=== PATIENT | male | born 1965 | race Caucasian/White ===

== ENCOUNTER 2017-11-09 09:56 | Day surgery (SDC) | payer BC, SELFPAY ==
[2017-11-08 14:51] VITALS: BMI 24.3
[2017-11-09] VITALS (7 sets, daily range): BP systolic 105–136; BP diastolic 65–80; PULSE 53–63; RESP 16–20; TEMP 36.4–36.8; O2SAT 54–99
--- NOTE | 2017-11-09 12:00 | HMH.SCOPE ---
- Procedure: Date: 11/09/17 Procedure Performed:: Total colonoscopy to terminal ileum with polypectomy Indications:: Patient is a 52-year-old white male referred by Dr. Vivek Cooper for colonoscopy. I had performed colonoscopy on him 12 years ago in 2005 after he had relatively significant diverticulitis requiring several day inpatient stay. Following that he did have colonoscopy revealing some diverticulosis. He has had no problems since then. Plan was made for colonoscopy for screening. Performing Provider:: Jared Paige MD Referring Provider:: Kenneth Sedation:: Propofol Procedure:: Consent was obtained and patient was taken to endoscopy procedure room. He was positioned in a lateral decubitus position. Adequate intravenous sedation was achieved. Double stiffness Olympus colonoscope was inserted via the anus and advanced to the cecum. Ileocecal valve and appendiceal orifice were clearly identified. Colonoscope was advanced into the terminal ileum which appeared grossly normal. Colonoscope was withdrawn through the colon with careful surveillance. There was a tiny possible early diminutive ridge polyp removed with biopsy forceps. Within the sigmoid colon around 30 cm from anal verge there were several scattered diverticuli. There was a subtle hyperplastic appearing polyp in the sigmoid colon which was removed with cold biopsy forceps but was unable to be retrieved. Colonoscope was withdrawn into the rectum and retroflexion revealed nonpathologic internal hemorrhoids. Colonoscope was withdrawn. Findings:: Diverticulosis Possible early polyp Recommendations:: Likely repeat colonoscopy 5 years Complications:: None Estimated blood obtained (mL): 2
--- NOTE | 2017-11-09 12:48 | HMH.ANESCL ---
[facility] Anesthesia Checklist - Patient Identification Patient Identification: Arm Band - Structural Data Admitted From: Home Planned Operative Procedure/s: colonoscopy Consent for Planned Operative Procedure(s) Verified: Yes Verified Documents: Surgical Consent, History and Physical - NPO Status Verified Time NPO: 00:00 - Additional verifications Anesthesia Reactions: No - Airway Assessment C-Spine Mobility Assessed: Yes (mp2) TMJ Mobility Assessed: Yes Dentition: Good Dentition - Neurological Assessment Level of Consciousness: Awake, Alert - Anesthesia Plan Anesthesia Risk discussed: Yes Anesthesia Plan: Verified ASA Class: II Anesthesia Type: MAC [facility] Anesthesia HX I have reviewed the patient's past medical history: Yes Medical History: Reports:: Hypertension Denies:: Diabetes Mellitus Type 1, Diabetes Mellitus Type 2, Internal Pacemaker, Lung Disease, Seizures Other Surgeries: Yes: No Previous Surgery. No: Pacemaker *Family Hx:: No significant family history
== END 2017-11-09 12:45 | disposition home or self-care (01) ==
LOC: OUTP 10:02
PROVIDERS: Family Provider Internal Medicine; PCP Internal Medicine; Visit Provider Surgery
PROC: 0DJD8ZZ Inspection of Lower Intestinal Tract, Via Natural or Artificial Opening Endoscopic (ICD-10-PCS; CPT 45380; principal; 2017-11-09 11:15)
DX: Z12.11 Encounter for screening for malignant neoplasm of colon (principal); K63.5 Polyp of colon; K57.30 Diverticulosis of large intestine without perforation or abscess without bleeding; K63.89 Other specified diseases of intestine
CPT/HCPCS: 45380

== ENCOUNTER → 2022-03-19 07:48 | Outpatient (CLI) | payer BC, SELFPAY ==
[2022-03-19 08:20] LABS: Basophils # 0.1 K/mm3 (0-0.2); Basophils % 0.8 % (0.1-2.0); Eosinophils # 0.1 K/mm3 (0.0-0.4); Eosinophils % 1.6 % (0.1-12.0); Hematocrit 44.9 % (42.0-52.0); Hemoglobin 14.5 g/dL (14.1-18.0); Lymphocytes # 1.7 K/mm3 (0.7-4.5); Mean Corpuscular HGB Conc 32.2 g/dL (31.8-35.4); Mean Corpuscular Hemoglobin 30.1 pg (27.0-31.2); Mean Corpuscular Volume 93.4 fl (80-94); Mean Platelet Volume 7.5 fl (7.4-10.4); Monocytes # 0.4 K/mm3 (0.1-1.0); Monocytes % 5.4 % (1.7-9.3); Neutrophils # 4.4 K/mm3 (1.8-7.8); Neutrophils % 66.1 % (37.0-80.0); Platelet Count 259 K/mm3 (142-424); Red Blood Count 4.81 M/mm3 (4.60-6.20); Red Cell Distribution Width 13.7 % (11.5-17.5); White Blood Count 6.7 K/mm3 (4.8-10.8)
[2022-03-19 08:54] LABS: Potassium 4.3 mmoL/L (3.5-5.1); Sodium 140 mmol/L (136-145)
[2022-03-19 08:56] LABS: Alanine Aminotransferase 37 U/L (12-78); Aspartate Amino Transferase 39 U/L (17-59); Blood Urea Nitrogen 18 mg/dl (9-20); Estimated Glomerular Filt Rate 87 ml/min (>60); GFR (African American) 106 ML/MIN (>60)
[2022-03-19 08:57] LABS: Albumin Level 4.2 g/dl (3.5-5.0); Albumin/Globulin Ratio 1.6 (1.1-1.8); Alkaline Phosphatase 104 U/L (38-126); Bilirubin,Total 0.2 mg/dl (0.2-1.3); Calcium 9.3 mg/dl (8.4-10.2); Carbon Dioxide 28 mmol/L (22.0-30.0); Cholesterol 211 mg/dl (140-200); Globulin 2.6 g/dL (1.3-3.2); Glucose 129 mg/dl (74-100); HDL Cholesterol 71 mg/dl (40-60); Total Protein,Serum 6.8 g/dl (6.3-8.2); Triglycerides 193 mg/dl (30-150); VLDL Cholesterol 39 mg/dL (0-40)
[2022-03-19 09:01] LABS: Uric Acid 4.3 mg/dl (3.5-8.5)
[2022-03-19 09:32] LABS: Prostate Specific Ag, Diagnost 0.848 ng/ml (0.0-4.0)
[2022-03-19 10:20] LABS: Anion Gap 8.3 mEq/L (5-15); Chloride 108 mmol/L (98-107)
[2022-03-20 08:29] LABS: Direct LDL Cholesterol 115 mg/dL (100-129)
== END ==
PROVIDERS: PCP Internal Medicine; Visit Provider Internal Medicine
DX: I10 Essential (primary) hypertension (principal); E78.5 Hyperlipidemia, unspecified; K57.30 Diverticulosis of large intestine without perforation or abscess without bleeding; M10.9 Gout, unspecified
CPT/HCPCS: 36415; 80053; 80061; 84153; 84550; 85025

== ENCOUNTER → 2022-12-07 09:45 | Outpatient (CLI) | payer BC, SELFPAY ==
[2022-12-07 11:09] LABS: Chloride 105 mmol/L (98-107); Potassium 4.7 mmoL/L (3.5-5.1); Sodium 139 mmol/L (136-145)
[2022-12-07 11:11] LABS: Blood Urea Nitrogen 14 mg/dl (9-20); Estimated Glomerular Filt Rate 87 ml/min (>60); GFR (African American) 105 ML/MIN (>60)
[2022-12-07 11:12] LABS: Alanine Aminotransferase 42 U/L (12-78); Albumin Level 4.4 g/dl (3.5-5.0); Albumin/Globulin Ratio 1.6 (1.1-1.8); Alkaline Phosphatase 82 U/L (38-126); Anion Gap 11.7 mEq/L (5-15); Aspartate Amino Transferase 42 U/L (17-59); Bilirubin,Total 0.5 mg/dl (0.2-1.3); Calcium 8.7 mg/dl (8.4-10.2); Carbon Dioxide 27 mmol/L (22.0-30.0); Cholesterol 211 mg/dl (140-200); Globulin 2.7 g/dL (1.3-3.2); Glucose 92 mg/dl (74-100); Total Protein,Serum 7.1 g/dl (6.3-8.2); Triglycerides 253 mg/dl (30-150); VLDL Cholesterol 51 mg/dL (0-40)
[2022-12-07 11:13] LABS: Chol/HDL Ratio 3.4 (1-3.5); HDL Cholesterol 62 mg/dl (40-60)
[2022-12-07 11:23] LABS: Direct LDL Cholesterol 92.18 mg/dL (100-129)
[2022-12-07 15:02] LABS: Uric Acid 4.3 mg/dl (3.5-8.5)
== END ==
PROVIDERS: PCP Internal Medicine; Visit Provider Internal Medicine
DX: I10 Essential (primary) hypertension (principal); E78.5 Hyperlipidemia, unspecified; K57.30 Diverticulosis of large intestine without perforation or abscess without bleeding; R73.02 Impaired glucose tolerance (oral); M10.9 Gout, unspecified
CPT/HCPCS: 36415; 80053; 80061; 84550

== ENCOUNTER → 2023-06-18 09:29 | Outpatient (CLI) | payer BC, SELFPAY ==
[2023-06-18 10:44] LABS: Basophils % 0.8 % (0.1-2.0); Eosinophils # 0.1 K/mm3 (0.0-0.4); Eosinophils % 2.3 % (0.1-12.0); Hemoglobin 15.2 g/dL (14.1-18.0); Lymphocytes # 1.4 K/mm3 (0.7-4.5); Lymphocytes % 27.3 % (10-50); Mean Corpuscular HGB Conc 34.6 g/dL (31.8-35.4); Mean Corpuscular Hemoglobin 31.8 pg (27.0-31.2); Mean Corpuscular Volume 91.8 fl (80-94); Mean Platelet Volume 7.2 fl (7.4-10.4); Monocytes # 0.2 K/mm3 (0.1-1.0); Monocytes % 4.3 % (1.7-9.3); Neutrophils # 3.4 K/mm3 (1.8-7.8); Neutrophils % 65.3 % (37.0-80.0); Platelet Count 254 K/mm3 (142-424); Red Cell Distribution Width 13.7 % (11.5-17.5); White Blood Count 5.2 K/mm3 (4.8-10.8)
[2023-06-18 10:55] LABS: Alanine Aminotransferase 31 U/L (12-78); Albumin Level 4.3 g/dl (3.5-5.0); Albumin/Globulin Ratio 1.5 (1.1-1.8); Alkaline Phosphatase 83 U/L (38-126); Anion Gap 12.7 mEq/L (5-15); Aspartate Amino Transferase 31 U/L (17-59); Bilirubin,Total 0.4 mg/dl (0.2-1.3); Blood Urea Nitrogen 14 mg/dl (9-20); Calcium 9.2 mg/dl (8.4-10.2); Carbon Dioxide 27 mmol/L (22.0-30.0); Chloride 104 mmol/L (98-107); Chol/HDL Ratio 2.6 (1-3.5); Cholesterol 211 mg/dl (140-200); Estimated Glomerular Filt Rate 87 ml/min (>60); GFR (African American) 105 ML/MIN (>60); Globulin 2.8 g/dL (1.3-3.2); Glucose 116 mg/dl (74-100); HDL Cholesterol 81 mg/dl (40-60); Potassium 4.7 mmoL/L (3.5-5.1); Sodium 139 mmol/L (136-145); Total Protein,Serum 7.1 g/dl (6.3-8.2); Triglycerides 78 mg/dl (30-150); Uric Acid 4.4 mg/dl (3.5-8.5); VLDL Cholesterol 16 mg/dL (0-40)
[2023-06-18 11:06] LABS: Direct LDL Cholesterol 106.61 mg/dL (100-129)
[2023-06-18 11:23] LABS: Prostate Specific Ag Screen 0.9 ng/ml (0.0-4.0)
== END ==
PROVIDERS: PCP Internal Medicine; Visit Provider Internal Medicine
DX: I10 Essential (primary) hypertension (principal); E78.5 Hyperlipidemia, unspecified; M10.9 Gout, unspecified; K57.30 Diverticulosis of large intestine without perforation or abscess without bleeding; Z12.5 Encounter for screening for malignant neoplasm of prostate; N40.1 Benign prostatic hyperplasia with lower urinary tract symptoms
CPT/HCPCS: 36415; 80053; 80061; 84550; 85025; G0103

== ENCOUNTER 2023-12-20 12:20 | Outpatient (CLI) | payer BC, SELFPAY ==
[2023-12-20 13:50] LABS: Hemoglobin A1C 5.9 % (4.0-6.0)
[2023-12-20 14:18] LABS: Chloride 107 mmol/L (98-107)
[2023-12-20 14:19] LABS: Potassium 4.6 mmoL/L (3.5-5.1); Sodium 139 mmol/L (136-145)
[2023-12-20 14:21] LABS: Alanine Aminotransferase 26 U/L (12-78); Albumin Level 4.1 g/dl (3.5-5.0); Albumin/Globulin Ratio 1.5 (1.1-1.8); Alkaline Phosphatase 88 U/L (38-126); Anion Gap 5.6 mEq/L (5-15); Aspartate Amino Transferase 33 U/L (17-59); Bilirubin,Total 0.8 mg/dl (0.2-1.3); Blood Urea Nitrogen 13 mg/dl (9-20); Carbon Dioxide 31 mmol/L (22.0-30.0); Cholesterol 222 mg/dl (140-200); Estimated Glomerular Filt Rate 99 ml/min (>60); GFR (African American) 120 ML/MIN (>60); Globulin 2.7 g/dL (1.3-3.2); Total Protein,Serum 6.8 g/dl (6.3-8.2); Triglycerides 194 mg/dl (30-150); VLDL Cholesterol 39 mg/dL (0-40)
[2023-12-20 14:22] LABS: Calcium 8.8 mg/dl (8.4-10.2); Glucose 114 mg/dl (74-100); HDL Cholesterol 75 mg/dl (40-60)
[2023-12-20 14:34] LABS: Direct LDL Cholesterol 112.03 mg/dL (100-129)
[2023-12-20 14:43] LABS: Uric Acid 4.2 mg/dl (3.5-8.5)
== END 2023-12-20 23:59 | disposition home or self-care (01) ==
LOC: LAB.DROPOF 12:21
PROVIDERS: PCP Internal Medicine; Visit Provider Internal Medicine
DX: I10 Essential (primary) hypertension (principal); M10.9 Gout, unspecified; K57.30 Diverticulosis of large intestine without perforation or abscess without bleeding; E78.5 Hyperlipidemia, unspecified; N40.0 Benign prostatic hyperplasia without lower urinary tract symptoms; R73.01 Impaired fasting glucose
CPT/HCPCS: 80053; 80061; 83036; 84550

== ENCOUNTER 2024-08-07 08:37 | Outpatient (CLI) | payer BC, SELFPAY ==
[2024-08-07 11:07] LABS: Blood Urea Nitrogen 20 mg/dl (9-20); Carbon Dioxide 29 mmol/L (22.0-30.0); Chloride 105 mmol/L (98-107); Estimated Glomerular Filt Rate 77 ml/min (>60); Sodium 139 mmol/L (136-145)
[2024-08-07 11:08] LABS: Alanine Aminotransferase 27 U/L (12-78); Albumin/Globulin Ratio 1.5 (1.1-1.8); Alkaline Phosphatase 98 U/L (38-126); Aspartate Amino Transferase 32 U/L (17-59); Bilirubin,Total 0.8 mg/dl (0.2-1.3); Calcium 8.8 mg/dl (8.4-10.2); GFR (African American) 93 ML/MIN (>60); Globulin 2.6 g/dL (1.3-3.2); Glucose 99 mg/dl (74-100); Total Protein,Serum 6.6 g/dl (6.3-8.2); Uric Acid 4.1 mg/dl (3.5-8.5)
[2024-08-07 11:10] LABS: Anion Gap 8.9 mEq/L (5-15); Potassium 3.9 mmoL/L (3.5-5.1)
[2024-08-07 11:45] LABS: Prostate Specific Ag Screen 0.7 ng/ml (0.0-4.0)
[2024-08-07 14:12] LABS: Basophils % 0.6 % (0.1-2.0); Eosinophils % 1.4 % (0.1-12.0); Hematocrit 43.2 % (42.0-52.0); Hemoglobin 14.5 g/dL (14.1-18.0); Lymphocytes % 32.9 % (10-50); Mean Corpuscular HGB Conc 33.6 g/dL (31.8-35.4); Mean Corpuscular Hemoglobin 30.1 pg (27.0-31.2); Mean Corpuscular Volume 89.8 fl (80-94); Mean Platelet Volume 9.9 fl (7.4-10.4); Monocytes % 7.2 % (1.7-9.3); Neutrophils % 57.7 % (37.0-80.0); Platelet Count 247 K/mm3 (142-424); Red Blood Count 4.81 M/mm3 (4.60-6.20); Red Cell Distribution Width 13.2 % (11.5-17.5); White Blood Count 6.3 K/mm3 (4.8-10.8)
[2024-08-07 14:13] LABS: Eosinophils # 0.1 K/mm3 (0.0-0.4); Lymphocytes # 2.1 K/mm3 (0.7-4.5); Monocytes # 0.5 K/mm3 (0.1-1.0); Neutrophils # 3.6 K/mm3 (1.8-7.8)
== END 2024-08-07 23:59 | disposition home or self-care (01) ==
LOC: LAB 08:39
PROVIDERS: PCP Internal Medicine; Visit Provider Internal Medicine
DX: Z12.5 Encounter for screening for malignant neoplasm of prostate (principal); M10.9 Gout, unspecified; I10 Essential (primary) hypertension
CPT/HCPCS: 36415; 80053; 84550; 85025; G0103

== ENCOUNTER 2025-02-27 07:28 | Outpatient (CLI) | payer BC, SELFPAY ==
--- OUTSIDE RECORDS SUMMARY | 2025-02-27 07:30 | XMS_ITS ---
Author Organization Unknown Medications Medication Instructions Effective Dates (start - sto p) Status allopurinol 300 MG Oral Tablet 2022-06-02 T00:00:00.000+00:00 - Completed amlodipine 5 MG Oral Tablet [id number] :00:00.000+00:00 - Completed amlodipine 5 MG Oral Tablet [id number] :00:00.000+00:00 - Completed amlodipine 5 MG Oral Tablet [id number] :00:00.000+00:00 - Completed allopurinol 300 MG Oral Tablet 2022-09-02 T00:00:00.000+00:00 - Completed allopurinol 300 MG Oral Tablet 2022-12-04 T00:00:00.000+00:00 - Completed - [id number]:00:00.000+00:0 0 - Completed lisinopril 40 MG Oral Tablet [id number] 0:00:00.000+00:00 - Completed - [id number]:00:00.000+00:0 0 - Completed lisinopril 40 MG Oral Tablet [id number] 0:00:00.000+00:00 - Completed lisinopril 40 MG Oral Tablet [id number] 0:00:00.000+00:00 - Completed Patient Care team information Name Category Status Period Participants - - Proposed period not known -
[2025-02-27 08:09] LABS: Hematocrit 40.7 % (42.0-52.0); Hemoglobin 13.6 g/dL (14.1-18.0); Immature Granulocytes % 0.2 %; Mean Corpuscular HGB Conc 33.4 g/dL (31.8-35.4); Mean Corpuscular Hemoglobin 29.8 pg (27.0-31.2); Mean Corpuscular Volume 89.3 fl (80-94); Nucleated Red Blood Cells % 0 %; Platelet Count 224 K/mm3 (142-424); Red Blood Count 4.56 M/mm3 (4.60-6.20); Red Cell Distribution Width-SD 43.8 fL; White Blood Count 6.6 K/mm3 (4.8-10.8)
[2025-02-27 08:30] LABS: Alanine Aminotransferase 20 U/L (12-78); Albumin Level 4.3 g/dl (3.5-5.0); Albumin/Globulin Ratio 1.6 (1.1-1.8); Alkaline Phosphatase 90 U/L (38-126); Anion Gap 14.1 mEq/L (5-15); Aspartate Amino Transferase 27 U/L (17-59); Bilirubin,Total 0.8 mg/dl (0.2-1.3); Blood Urea Nitrogen 15 mg/dl (9-20); Calcium 9.0 mg/dl (8.4-10.2); Carbon Dioxide 27 mmol/L (22.0-30.0); Chloride 102 mmol/L (98-107); Cholesterol 196 mg/dl (140-200); Creatinine,Serum 0.70 mg/dl (0.66-1.25); Estimated Glomerular Filt Rate 115 ml/min (>60); GFR (African American) 140 ML/MIN (>60); Globulin 2.7 g/dL (1.3-3.2); Glucose 114 mg/dl (74-100); HDL Cholesterol 71 mg/dl (40-60); Potassium 4.1 mmoL/L (3.5-5.1); Sodium 139 mmol/L (136-145); Total Protein,Serum 7.0 g/dl (6.3-8.2); Triglycerides 108 mg/dl (30-150); Uric Acid 4.1 mg/dl (3.5-8.5)
== END 2025-02-27 23:59 | disposition home or self-care (01) ==
PROVIDERS: PCP Internal Medicine; Visit Provider Internal Medicine
DX: I10 Essential (primary) hypertension (principal); E78.5 Hyperlipidemia, unspecified; M10.9 Gout, unspecified
CPT/HCPCS: 36415; 80053; 80061; 84550; 85025

== ENCOUNTER 2025-03-08 07:17 | Outpatient (CLI) | payer BC, SELFPAY ==
[2025-03-08 07:36] LABS: Reticulocyte % (Auto) 1.4 % (0.9-3.2)
[2025-03-08 09:06] LABS: Vitamin B12 449 pg/mL (239-931)
[2025-03-08 09:32] LABS: Iron 129 ug/dL (49-181)
[2025-03-08 09:40] LABS: Hemoglobin A1C 5.8 % (4.0-6.0)
[2025-03-08 09:41] LABS: Total Iron Binding Capacity 292 ug/dL (261-462)
== END 2025-03-08 23:59 | disposition home or self-care (01) ==
LOC: LAB 07:18
PROVIDERS: PCP Internal Medicine; Visit Provider Internal Medicine
DX: D64.9 Anemia, unspecified (principal); R73.01 Impaired fasting glucose
CPT/HCPCS: 36415; 82607; 83036; 83540; 83550; 85044